=== PATIENT | female | born 1990 | race Hispanic/Latino ===

== ENCOUNTER 2020-04-14 15:21 | Emergency (ER) | payer SELFPAY ==
[2020-04-14 15:55] LABS: Pregnancy Test - Urine (BHCG) Negative (Negative); Pregu Control Background? CLEAR/WHITE (CLR/WHITE); Pregu Control Bar Appear? YES (CONTROL BAR); Specific Gravity 1.024 (1.002-1.036)
[2020-04-14 15:56] LABS: Bilirubin Negative (Negative); Blood, Urine Negative (Negative); Clarity Clear (Clear); Glucose, Urine (Dipstick) Normal (Negative); Ketone, Urine Negative (Negative); Leukocyte 250 Leu/uL (Negative); Nitrite Negative (Negative); Protein, Urine (Dipstick) 10 mg/dL (Neg-Trace); RBC/HPF 0-3 HPF (0-3); Specific Gravity, Urine 1.024 (1.002-1.036); Urobilinogen Normal mg/dL (Less than 2); pH, Urine 6.5 (5.0-9.0)
[2020-04-14 15:57] LABS: Bacteria/HPF 1+ HPF (None Seen)
[2020-04-14 16:26] LABS: #Basophils 0.1 thou/uL (0.0-0.2); #Eosinphils 0.1 thou/uL (0.0-0.7); #Lymphocytes 1.9 thou/uL (1.20-3.40); #Monocytes 0.4 thou/uL (0.11-0.59); #Neutrophils 5.1 thou/uL (1.40-6.50); %Basophils 1.2 % (0.0-1.0); %Eosinophils 0.9 % (0.0-10.0); %Lymphocytes 25.2 % (21.0-51.0); %Monocytes 5.6 % (0.0-10.0); %Neutrophils 67.1 % (42.0-75.0); Hemoglobin 13.2 g/dL (12.0-16.0); Mean Corpuscular HGB CONC 34.8 g/dL (32.0-36.0); Mean Platelet Volume 8.4 fL (7.4-10.4); Platelet Count 312 thou/uL (130-400); RBC Distribution Width 11.2 % (11.5-14.5); Red Blood Cell (RBC) Count 4.11 mill/uL (4.20-5.40); White Blood Cell (WBC) Count 7.6 thou/uL (4.8-10.8)
[2020-04-14 16:45] LABS: ALT (SGPT) 55 U/L (8-55); AST (SGOT) 34 U/L (5-34); Albumin 4.5 g/dL (3.5-5.0); Alkaline Phosphatase 76 U/L (40-110); Anion Gap 12 mmol/L (10-20); BUN (Urea Nitrogen) 9 mg/dL (7.0-18.7); Bilirubin, Total 0.8 mg/dL (0.2-1.2); Calc. Creatinine Clearance 0 mL/min (70-130); Calcium 9.5 mg/dL (7.8-10.44); Carbon Dioxide 26 mmol/L (22-29); Chloride 104 mmol/L (98-107); Estimated GFR-MDRD Greater than 90; Globulin 3.4 g/dL (2.4-3.5); Glucose 101 mg/dL (70-105); Lipase 17 U/L (8-78); Potassium 3.6 mmol/L (3.5-5.1); Protein, Total 7.9 g/dL (6.0-8.3); Sodium 138 mmol/L (136-145)
== END 2020-04-14 17:00 | disposition home or self-care (01) ==
LOC: ERS 15:21
DX: M54.6 Pain in thoracic spine (principal)
CPT/HCPCS: 80053; 81003; 81015; 81025; 83690; 85025; 87086; 99284